=== PATIENT | male | born 1995 | race Caucasian/White ===

== ENCOUNTER 2018-06-15 15:23 | Emergency (ER) | payer OTHER ==
--- NOTE | 2018-06-15 15:42 | XR ---
EXAMINATION TYPE: XR tibia fibula RT DATE OF EXAM: 06/15/2018 COMPARISON: NONE HISTORY: 23-year-old male right lower leg pain after injury TECHNIQUE: 2 views FINDINGS: Tibia and fibula show no acute fracture. Knee and ankle articulations appear grossly intact. IMPRESSION: No acute osseous abnormality seen.
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
[2018-06-15 15:44] VITALS: RESP 18
[2018-06-15 16:45] LABS: Partial Thromboplastin Time 23.4 sec (22.0-30.0); Prothrombin Time 10.3 sec (9.0-12.0)
[2018-06-15 16:48] LABS: ALT 44 U/L (21-72); AST 25 U/L (17-59); Albumin 4.2 g/dL (3.5-5.0); Alcohol <10 mg/dL; Alkaline Phosphatase 82 U/L (38-126); Anion Gap 9 mmol/L; Blood Urea Nitrogen 20 mg/dL (9-20); Calcium 9.8 mg/dL (8.4-10.2); Carbon Dioxide 26 mmol/L (22-30); Chloride 104 mmol/L (98-107); Glucose 276 mg/dL (74-99); Potassium 4.6 mmol/L (3.5-5.1); Sodium 139 mmol/L (137-145); Total Bilirubin 0.7 mg/dL (0.2-1.3); Total Protein 7.4 g/dL (6.3-8.2)
[2018-06-15 16:52] LABS: Creatine Kinase 50 U/L (55-170)
[2018-06-15 16:54] LABS: Basophils % (A) 0 %; Eosinophils # (A) 0.1 k/uL (0-0.7); Eosinophils % (A) 1 %; HCT 44.9 % (39.0-53.0); HGB 15.3 gm/dL (13.0-17.5); Lymphocytes # (A) 1.6 k/uL (1.0-4.8); Lymphocytes % (A) 17 %; MCH 29.6 pg (25.0-35.0); MCV 87.2 fL (80.0-100.0); Mean Platelet Volume 10.2; Monocytes # (A) 0.5 k/uL (0-1.0); Monocytes % (A) 5 %; Neutrophils # (A) 7.2 k/uL (1.3-7.7); Neutrophils % (A) 76 %; Platelet Count 154 k/uL (150-450); RBC 5.15 m/uL (4.30-5.90); WBC 9.5 k/uL (3.8-10.6)
[2018-06-15 17:04] LABS: Creatine Kinase MB 0.5 ng/mL (0.0-2.4); Troponin I <0.012 ng/mL (0.000-0.034)
[2018-06-15 17:13] LABS: Amphetamine Screen,Urine Not Detected (NotDetected); Barbiturate Screen,Urine Not Detected (NotDetected); Benzodiazepines Screen,Urine Not Detected (NotDetected); Cocaine Screen,Urine Not Detected (NotDetected); Methadone Screen, Urine Not Detected (NotDetected); Opiate Screen,Urine Not Detected (NotDetected); Oxycodone Screen, Urine Not Detected (NotDetected); Phencyclidine Screen,Urine Not Detected (NotDetected); Tricyclic Antidepressant,Urine Not Detected (NotDetected); Urn Cannabinoid Scrn Not Detected (NotDetected)
[2018-06-15 17:23] VITALS: BP 134/81; PULSE 72; TEMP 98.6
== END 2018-06-15 17:23 | disposition home or self-care (01) ==
LOC: EC 15:23
DX: S80.11XA Contusion of right lower leg, initial encounter (principal); R73.9 Hyperglycemia, unspecified; F32.9 Major depressive disorder, single episode, unspecified; Z79.84 Long term (current) use of oral hypoglycemic drugs; Z79.899 Other long term (current) drug therapy; W20.8XXA Other cause of strike by thrown, projected or falling object, initial encounter; Y93.89 Activity, other specified
CPT/HCPCS: 36415; 80053; 80306; 80320; 82550; 82553; 84484; 85025; 85610; 85730; 99283

== ENCOUNTER 2018-07-10 17:48 | Inpatient (IN) | payer MEDICAID, OTHER ==
--- NOTE | 2018-07-10 19:02 | ED ---
Psych HPI - General Source: patient, RN notes reviewed, old records reviewed Mode of arrival: ambulatory <Yessy Molina - Last Filed: 07/10/18 19:44> <Jay Bishop - Last Filed: 07/11/18 14:53> - General Chief Complaint: Psychiatric Symptoms Stated Complaint: psych eval Time Seen by Provider: 07/10/18 18:00 - History of Present Illness Initial Comments: 23-year-old male presents emergency department today with complaints of depression and suicidal thoughts. Patient was encouraged to come to the emergency room was brought in via police. Patient's had no other complaints. Patient has had no plan and he will tell me of his suicidal plan. He's had no previous psych history or no counseling. (Yessy Molina) - Related Data Home Medications Medication Instructions Recorded Confirmed metFORMIN HCL [Glucophage] 500 mg PO BID 06/15/18 07/10/18 traZODone HCL 50 mg PO HS 06/15/18 07/10/18 Allergies Allergy/AdvReac Type Severity Reaction Status Date / Time No Known Allergies Allergy Verified 07/10/18 18:06 Review of Systems ROS Other: All systems not noted in ROS Statement are negative. <Yessy Molina - Last Filed: 07/10/18 19:44> ROS Other: All systems not noted in ROS Statement are negative. <Jay Bishop - Last Filed: 07/11/18 14:53> ROS Statement: Those systems with pertinent positive or pertinent negative responses have been documented in the HPI. Past Medical History Past Medical History: No Reported History History of Any Multi-Drug Resistant Organisms: None Reported Past Surgical History: No Surgical Hx Reported Past Psychological History: Depression Smoking Status: Never smoker Past Alcohol Use History: Occasional Past Drug Use History: None Reported <Yessy Molina - Last Filed: 07/10/18 19:44> General Exam Limitations: no limitations General appearance: alert, in no apparent distress Head exam: Present: atraumatic, normocephalic, normal inspection Eye exam: Present: normal appearance, PERRL, EOMI. Absent: scleral icterus, conjunctival injection, periorbital swelling ENT exam: Present: normal exam, mucous membranes moist Neck exam: Present: normal inspection. Absent: tenderness, meningismus, lymphadenopathy Respiratory exam: Present: normal lung sounds bilaterally. Absent: respiratory distress, wheezes, rales, rhonchi, stridor Cardiovascular Exam: Present: regular rate, normal rhythm, normal heart sounds. Absent: systolic murmur, diastolic murmur, rubs, gallop, clicks GI/Abdominal exam: Present: soft, normal bowel sounds. Absent: distended, tenderness, guarding, rebound, rigid Extremities exam: Present: normal inspection, full ROM, normal capillary refill. Absent: tenderness, pedal edema, joint swelling, calf tenderness Back exam: Present: normal inspection Neurological exam: Present: alert, oriented X3, CN II-XII intact Psychiatric exam: Present: normal mood, depressed, flat affect, suicidal ideation. Absent: normal affect Skin exam: Present: warm, dry, intact, normal color. Absent: rash <Yessy Molina - Last Filed: 07/10/18 19:44> <Jay Bishop - Last Filed: 07/11/18 14:53> - General Exam Comments Initial Comments: Stoic 23-year-old male. Patient pacing around room. (Yessy Molina) Vital Signs 07/10/18 07/10/18 07/11/18 17:53 23:52 06:23 Temperature 97.9 F Pulse Rate 91 Respiratory 18 18 18 Rate Blood Pressure 144/92 O2 Sat by Pulse 96 Oximetry 07/11/18 13:31 Temperature Pulse Rate 86 Respiratory 18 Rate Blood Pressure 145/82 O2 Sat by Pulse 95 Oximetry Medical Decision Making - Lab Data Result diagrams: 07/10/18 19:27 <Yessy Molina - Last Filed: 07/10/18 19:44> - Lab Data Result diagrams: 07/10/18 19:27 07/10/18 19:27 <Jay Bishop - Last Filed: 07/11/18 14:53> - Medical Decision Making 23-year-old male presents for his pharmacy with police with complaints of depression and suicidal thoughts. He will not tell me plan. Medically clear at this time for violation by EPS. Patient family friend did fill out a petition. Patient will be clinic Center by Dr. Rhea leal. As there are no psychiatric beds available Patient be transferred to inpatient psychiatric facility. (Yessy Molina) Patient also evaluated by myself, Dr. Bishop at 1445. Patient admits to being depressed and having suicidal thoughts without plan. Patient states he has been taking his medications. No hallucinations. No homicidal thoughts. Second clinical certificate is completed. Plan is for psychiatric admission. ( Jay Bishop) - Lab Data Lab Results 07/10/18 07/10/18 07/10/18 Range/Units 18:41 18:41 19:27 WBC 11.1 H (3.8-10.6) k/uL RBC 5.25 (4.30-5.90) m/uL Hgb 15.8 (13.0-17.5) gm/dL Hct 46.9 (39.0-53.0) % MCV 89.3 (80.0-100.0) fL MCH 30.1 (25.0-35.0) pg MCHC 33.7 (31.0-37.0) g/dL RDW 12.9 (11.5-15.5) % Plt Count 168 (150-450) k/uL Neutrophils % 73 % Lymphocytes % 19 % Monocytes % 5 % Eosinophils % 1 % Basophils % 0 % Neutrophils # 8.1 H (1.3-7.7) k/uL Lymphocytes # 2.1 (1.0-4.8) k/uL Monocytes # 0.6 (0-1.0) k/uL Eosinophils # 0.2 (0-0.7) k/uL Basophils # 0.0 (0-0.2) k/uL Sodium (137-145) mmol/L Potassium (3.5-5.1) mmol/L Chloride (98-107) mmol/L Carbon Dioxide (22-30) mmol/L Anion Gap mmol/L BUN (9-20) mg/dL Creatinine (0.66-1.25) mg/dL Est GFR (CKD-EPI)AfAm (>60 ml/min/1.73 sqM) Est GFR (CKD-EPI)NonAf (>60 ml/min/1.73 sqM) Glucose (74-99) mg/dL POC Glucose (mg/dL) (75-99) mg/dL POC Glu Edge Baster ID Calcium (8.4-10.2) mg/dL Total Bilirubin (0.2-1.3) mg/dL AST (17-59) U/L ALT (21-72) U/L Alkaline Phosphatase (38-126) U/L Total Protein (6.3-8.2) g/dL Albumin (3.5-5.0) g/dL Urine Color Yellow Urine Appearance Clear (Clear) Urine pH 6.0 (5.0-8.0) Ur Specific [place] 1.035 (1.001-1.035) Urine Protein 1+ H (Negative) Urine Glucose (UA) 4+ H (Negative) Urine Ketones Negative (Negative) Urine Blood Negative (Negative) Urine Nitrite Negative (Negative) Urine Bilirubin Negative (Negative) Urine Urobilinogen <2.0 (<2.0) mg/dL Ur Leukocyte Esterase Negative (Negative) Urine RBC 1 (0-5) /hpf Urine WBC 1 (0-5) /hpf Ur Squamous Epith Cells <1 (0-4) /hpf Hyaline Casts 1 (0-2) /lpf Urine Mucus Rare H (None) /hpf Urine Opiates Screen Not Detected (NotDetected) Ur Oxycodone Screen Not Detected (NotDetected) Urine Methadone Screen Not Detected (NotDetected) Ur Propoxyphene Screen Not Detected (NotDetected) Ur Barbiturates Screen Not Detected (NotDetected) U Tricyclic Antidepress Not Detected (NotDetected) Ur Phencyclidine Scrn Not Detected (NotDetected) Ur Amphetamines Screen Not Detected (NotDetected) U Methamphetamines Scrn Not Detected (NotDetected) U Benzodiazepines Scrn Not Detected (NotDetected) Urine Cocaine Screen Not Detected (NotDetected) U Marijuana (THC) Screen Not Detected (NotDetected) 07/10/18 07/11/18 Range/Units 19:27 14:39 WBC (3.8-10.6) k/uL RBC (4.30-5.90) m/uL Hgb (13.0-17.5) gm/dL Hct (39.0-53.0) % MCV (80.0-100.0) fL MCH (25.0-35.0) pg MCHC (31.0-37.0) g/dL RDW (11.5-15.5) % Plt Count (150-450) k/uL Neutrophils % % Lymphocytes % % Monocytes % % Eosinophils % % Basophils % % Neutrophils # (1.3-7.7) k/uL Lymphocytes # (1.0-4.8) k/uL Monocytes # (0-1.0) k/uL Eosinophils # (0-0.7) k/uL Basophils # (0-0.2) k/uL Sodium 140 (137-145) mmol/L Potassium 4.4 (3.5-5.1) mmol/L Chloride 107 (98-107) mmol/L Carbon Dioxide 26 (22-30) mmol/L Anion Gap 7 mmol/L BUN 19 (9-20) mg/dL Creatinine 0.60 L (0.66-1.25) mg/dL Est GFR (CKD-EPI)AfAm >90 (>60 ml/min/1.73 sqM) Est GFR (CKD-EPI)NonAf >90 (>60 ml/min/1.73 sqM) Glucose 260 H (74-99) mg/dL POC Glucose (mg/dL) 286 H (75-99) mg/dL POC Glu Edge Baster ID Nayeli Redmond Calcium 9.7 (8.4-10.2) mg/dL Total Bilirubin 0.7 (0.2-1.3) mg/dL AST 19 (17-59) U/L ALT 45 (21-72) U/L Alkaline Phosphatase 82 (38-126) U/L Total Protein 7.8 (6.3-8.2) g/dL Albumin 4.5 (3.5-5.0) g/dL Urine Color Urine Appearance (Clear) Urine pH (5.0-8.0) Ur Specific [place] (1.001-1.035) Urine Protein (Negative) Urine Glucose (UA) (Negative) Urine Ketones (Negative) Urine Blood (Negative) Urine Nitrite (Negative) Urine Bilirubin (Negative) Urine Urobilinogen (<2.0) mg/dL Ur Leukocyte Esterase (Negative) Urine RBC (0-5) /hpf Urine WBC (0-5) /hpf Ur Squamous Epith Cells (0-4) /hpf Hyaline Casts (0-2) /lpf Urine Mucus (None) /hpf Urine Opiates Screen (NotDetected) Ur Oxycodone Screen (NotDetected) Urine Methadone Screen (NotDetected) Ur Propoxyphene Screen (NotDetected) Ur Barbiturates Screen (NotDetected) U Tricyclic Antidepress (NotDetected) Ur Phencyclidine Scrn (NotDetected) Ur Amphetamines Screen (NotDetected) U Methamphetamines Scrn (NotDetected) U Benzodiazepines Scrn (NotDetected) Urine Cocaine Screen (NotDetected) U Marijuana (THC) Screen (NotDetected) Disposition Is patient prescribed a controlled substance at d/c from ED?: No Time of Disposition: 19:46 <Yessy Molina - Last Filed: 07/10/18 19:44> <Jay Bishop - Last Filed: 07/11/18 14:53> Clinical Impression: Suicidal ideation, Psychosis Disposition: TRANSFER TO PSYCH HOSP/UNIT Condition: Stable Referrals: Cyndi Au MD [Primary Care Provider] - 1-2 days
[2018-07-10 19:12] LABS: Amphetamine Screen,Urine Not Detected (NotDetected); Barbiturate Screen,Urine Not Detected (NotDetected); Benzodiazepines Screen,Urine Not Detected (NotDetected); Cocaine Screen,Urine Not Detected (NotDetected); Methadone Screen, Urine Not Detected (NotDetected); Opiate Screen,Urine Not Detected (NotDetected); Oxycodone Screen, Urine Not Detected (NotDetected); Phencyclidine Screen,Urine Not Detected (NotDetected); Tricyclic Antidepressant,Urine Not Detected (NotDetected); Urn Cannabinoid Scrn Not Detected (NotDetected)
[2018-07-10 19:39] LABS: Appearance,Urine Clear (Clear); Bilirubin,Urine Negative (Negative); Blood,Urine Negative (Negative); Color,Urine Yellow; Glucose,Urine (UA) 4+ (Negative); Hyaline Casts,Urine 1 /lpf (0-2); Ketones,Urine Negative (Negative); Leukocyte Esterase,Urine Negative (Negative); Mucus,Urine Rare /hpf; Nitrite,Urine Negative (Negative); Protein,Urine 1+ (Negative); RBC,Urine 1 /hpf (0-5); Specific Gravity,Urine 1.035 (1.001-1.035); Squamous Epithelial Cell,Urine <1 /hpf (0-4); Urobilinogen,Urine <2.0 mg/dL (<2.0); WBC,Urine 1 /hpf (0-5)
[2018-07-10 19:41] LABS: Basophils % (A) 0 %; Eosinophils # (A) 0.2 k/uL (0-0.7); Eosinophils % (A) 1 %; HCT 46.9 % (39.0-53.0); HGB 15.8 gm/dL (13.0-17.5); Lymphocytes # (A) 2.1 k/uL (1.0-4.8); Lymphocytes % (A) 19 %; MCH 30.1 pg (25.0-35.0); MCHC 33.7 g/dL (31.0-37.0); MCV 89.3 fL (80.0-100.0); Mean Platelet Volume 8.9; Monocytes # (A) 0.6 k/uL (0-1.0); Monocytes % (A) 5 %; Neutrophils # (A) 8.1 k/uL (1.3-7.7); Neutrophils % (A) 73 %; Platelet Count 168 k/uL (150-450); RBC 5.25 m/uL (4.30-5.90); RDW 12.9 % (11.5-15.5); WBC 11.1 k/uL (3.8-10.6)
[2018-07-10 19:53] LABS: ALT 45 U/L (21-72); AST 19 U/L (17-59); Albumin 4.5 g/dL (3.5-5.0); Alkaline Phosphatase 82 U/L (38-126); Anion Gap 7 mmol/L; Blood Urea Nitrogen 19 mg/dL (9-20); Calcium 9.7 mg/dL (8.4-10.2); Carbon Dioxide 26 mmol/L (22-30); Chloride 107 mmol/L (98-107); Glucose 260 mg/dL (74-99); Potassium 4.4 mmol/L (3.5-5.1); Sodium 140 mmol/L (137-145); Total Bilirubin 0.7 mg/dL (0.2-1.3); Total Protein 7.8 g/dL (6.3-8.2)
[2018-07-11 14:40] LABS: Glucose,Whole Blood 286 mg/dL (75-99)
[2018-07-11] MEDS ORDERED: metFORMIN 500 MG TAB PO STA (14:52)
[2018-07-11] MEDS ORDERED: LORazepam 1 MG TAB PO PRN (16:26)
[2018-07-11] MEDS ORDERED: MAGNESIUM HYDROXIDE 2,400 MG/10 ML CUP PO PRN (16:26)
[2018-07-11] MEDS ORDERED: ACETAMINOPHEN TAB 325 MG TAB PO PRN (16:26)
[2018-07-11] MEDS ORDERED: MAG HYDROX/AL HYDROX/SIMETH 30 ML CUP PO PRN (16:26)
[2018-07-11] MEDS ORDERED: ZIPRASIDONE 20 MG VIAL IM PRN (18:01)
[2018-07-11] MEDS: INSULIN ASPART 100 UNIT/ML 1 ML 10 ML VIAL SQ SCH ×2 (18:11→21:42)
[2018-07-11 18:14] LABS: Glucose,Whole Blood 221 mg/dL (75-99)
[2018-07-11 20:16] LABS: Glucose,Whole Blood 252 mg/dL (75-99)
[2018-07-11] MEDS: traZODone HCL 50 MG TAB PO SCH (21:43)
[2018-07-12 02:18] LABS: Hemoglobin A1C 10.1 % (4.0-6.0)
[2018-07-12 06:33] LABS: Glucose,Whole Blood 200 mg/dL (75-99)
[2018-07-12] MEDS: INSULIN ASPART 100 UNIT/ML 1 ML 10 ML VIAL SQ SCH ×4 (08:24→21:00)
--- NOTE | 2018-07-12 09:51 | P.HP ---
Psychiatric H&P - . H&P Date: 07/12/18 History & Physical: Allergies Allergy/AdvReac Type Severity Reaction Status Date / Time No Known Allergies Allergy Verified 07/10/18 18:06 Vital Signs Temp 98.3 F 07/12/18 07:01 Pulse 87 07/12/18 07:01 Resp 20 07/12/18 07:01 BP 114/67 07/12/18 07:01 Pulse Ox 98 07/11/18 17:15 Laboratory Last Values WBC 11.1 k/uL (3.8-10.6) H 07/10/18 19: RBC 5.25 m/uL (4.30-5.90) 07/10/18 19: Hgb 15.8 gm/dL (13.0-17.5) 07/10/18 19: Hct 46.9 % (39.0-53.0) 07/10/18 19: MCV 89.3 fL (80.0-100.0) 07/10/18: MCH 30.1 pg (25.0-35.0) 07/10/18 19: MCHC 33.7 g/dL (31.0-37.0) 07/10/18 19: RDW 12.9 % (11.5-15.5) 07/10/18 19: Plt Count 168 k/uL (150-450) 07/10/18 19: Neutrophils % 73 % 07/10/18 19: Lymphocytes % 19 % 07/10/18 19: Monocytes % 5 % 07/10/18: Eosinophils % 1 % 07/10/18 19: Basophils % 0 % 07/10/18 19: Neutrophils # 8.1 k/uL (1.3-7.7) H 07/10/18 19: Lymphocytes # 2.1 k/uL (1.0-4.8) 07/10/18: Monocytes # 0.6 k/uL (0-1.0) 07/10/18 19: Eosinophils # 0.2 k/uL (0-0.7) 07/10/18 19: Basophils # 0.0 k/uL (0-0.2) 07/10/18 19: Sodium 140 mmol/L (137-145) 07/10/18 19:27 Potassium 4.4 mmol/L (3.5-5.1) 07/10/18 19: Chloride 107 mmol/L (98-107) 07/10/18 19: Carbon Dioxide 26 mmol/L (22-30) 07/10/18 19: Anion Gap 7 mmol/L 07/10/18 19: BUN 19 mg/dL (9-20) 07/10/18 19: Creatinine 0.60 mg/dL (0.66-1.25) L 07/10/18 19:27 Est GFR (CKD-EPI)AfAm >90 (>60 ml/min/1.73 sqM) 07/10/18: Est GFR (CKD-EPI)NonAf >90 (>60 ml/min/1.73 sqM) 07/10/18 19: Glucose 260 mg/dL (74-99) H 07/10/18 19: POC Glucose (mg/dL) 200 mg/dL (75-99) H 07/12/18 06:31 POC Glu Vp Production PINO Halle Sargent 07/12/18 06:[address] Glu mg/dL 243 07/10/18 19: Hemoglobin A1c 10.1 % (4.0-6.0) H 07/10/18: Calcium 9.7 mg/dL (8.4-10.2) 07/10/18 19: Total Bilirubin 0.7 mg/dL (0.2-1.3) 07/10/18 19: AST 19 U/L (17-59) 07/10/18: ALT 45 U/L (21-72) 07/10/18 19: Alkaline Phosphatase 82 U/L (38-126) 07/10/18 19: Total Protein 7.8 g/dL (6.3-8.2) 07/10/18 19: Albumin 4.5 g/dL (3.5-5.0) 07/10/18 19:27 Triglycerides 142 mg/dL (<150) 07/10/18 19: Cholesterol 195 mg/dL (<200) 07/10/18 19:27 LDL Cholesterol, Calc 130 mg/dL (0-99) H 07/10/18 19:27 HDL Cholesterol 37 mg/dL (40-60) L 07/10/18 19: TSH 0.698 mIU/L (0.465-4.680) 07/10/18 19: Urine Color Yellow 07/10/18 18:41 Urine Appearance Clear (Clear) 07/10/18 18:41 Urine pH 6.0 (5.0-8.0) 07/10/18 18:41 Ur Specific Morgan 1.035 (1.001-1.035) 07/10/18 18:41 Urine Protein 1+ (Negative) H 07/10/18 18:41 Urine Glucose (UA) 4+ (Negative) H 07/10/18 18:41 Urine Ketones Negative (Negative) 07/10/18 18:41 Urine Blood Negative (Negative) 07/10/18 18:41 Urine Nitrite Negative (Negative) 07/10/18 18:41 Urine Bilirubin Negative (Negative) 07/10/18 18:41 Urine Urobilinogen <2.0 mg/dL (<2.0) 07/10/18 18:41 Ur Leukocyte Esterase Negative (Negative) 07/10/18 18:41 Urine RBC 1 /hpf (0-5) 07/10/18 18:41 Urine WBC 1 /hpf (0-5) 07/10/18 18:41 Ur Squamous Epith Cells <1 /hpf (0-4) 07/10/18 18:41 Hyaline Casts 1 /lpf (0-2) 07/10/18 18:41 Urine Mucus Rare /hpf (None) H 07/10/18 18:41 Urine Opiates Screen Not Detected (NotDetected) 07/10/18 18:41 Ur Oxycodone Screen Not Detected (NotDetected) 07/10/18 18:41 Urine Methadone Screen Not Detected (NotDetected) 07/10/18 18:41 Ur Propoxyphene Screen Not Detected (NotDetected) 07/10/18 18:41 Ur Barbiturates Screen Not Detected (NotDetected) 07/10/18 18:41 U Tricyclic Antidepress Not Detected (NotDetected) 07/10/18 18:41 Ur Phencyclidine Scrn Not Detected (NotDetected) 07/10/18 18:41 Ur Amphetamines Screen Not Detected (NotDetected) 07/10/18 18:41 U Methamphetamines Scrn Not Detected (NotDetected) 07/10/18 18:41 U Benzodiazepines Scrn Not Detected (NotDetected) 07/10/18 18:41 Urine Cocaine Screen Not Detected (NotDetected) 07/10/18 18:41 U Marijuana (THC) Screen Not Detected (NotDetected) 07/10/18 18:41 Assessment and Plan Assessment: 23-year-old male presents emergency department today with complaints of depression and suicidal thoughts. Patient was encouraged to come to the emergency room was brought in via police. Patient's had no other complaints. Patient has had no plan and he will tell me of his suicidal plan. He's had no previous psych history or no counseling. His depression is developed over the last 6 months with increased depression and cutting 06/11/2018 when he felt so overwhelmed that he started wanting to just . He is a high school graduate and has not gone to college student fact that he is and is ill as well as his sister and he does not want to leave. patient states he has just been feeling very depressed. history of depression. States he occasionally feels suicidal. patient here with police, states someone called them because they were worried about him. Pt. presented at [facility] after a family friend called 911, stating pt. had been making threatening statements about hurting other people and himself. Pt. admits to self-abuse, displaying recent scars on his forearms and legs. Pt. admits to "years of depression and lonliness with nothing to live for in life". Pt. presents as concrete with little affect based on verbal report of symptoms. Pt. reports that his mother 3 years ago, but stated, "nothing I couldn't handle". Pt. states that he "hates people and often wishes the entire World would burn up ".Evidence of self-abuse is indicative of struggles with impulse control.Pt. reports that he "does nothing with the days". Pt. further states, "I can't hold a job, I can't have a relationship, there is nothing in my life". - Related Data Home Medications Medication Instructions Recorded Confirmed metFORMIN HCL [Glucophage] 500 mg PO BID 06/15/18 07/10/18 traZODone HCL 50 mg PO HS 06/15/18 07/10/18 Allergies Allergy/AdvReac Type Severity Reaction Status Date / Time No Known Allergies Allergy Verified 07/10/18 18:06 Past Medical History Past Medical History: No Reported History History of Any Multi-Drug Resistant Organisms: None Reported Past Surgical History: No Surgical Hx Reported Past Psychological History: Depression and recent onset never treated before Smoking Status: Never smoker Past Alcohol Use History: Occasional Past Drug Use History: None Reported Social history: Lives with aunt and sister, he does not know his biological father, his grandfather had Alzheimer's disease Legal history: None Musculoskeletal Examination - Abnormal/Involuntary Movements: [none Strength: [greater than antigravity (greater than/equal to 3/5) in all extremities Muscle Tone: [no impairment Gait: [grossly normal Station: [grossly normal Mental Status Examination - General Appearance: [disheveled, casual, bizarre, appears stated age appears younger than stated age Speech/Language: [ slow monotone, soft] Attitude/Behavior: [cooperative irritable, withdrawn, indifferent Mood: [depressed; 7 out of 10, anxious 6 out of 10, irritablefearful, hopelessness Affect: [flat, labile, blunted constricted] Orientation: [time, person, place situation] Thought Content: [wnl, denies delusions, obsessions, phobias, other] Risk Factors: [He currently is suicidal (ideations, plan), and/or Homicidal ( ideations, plan), other] Perception: [wnl, denies hallucinations (auditory, visual, tactile), other] Thought Processes: [concrete, circumstantial, tangential, other] Concentration/Attention Span: [ impaired] [Per observation and interview with the patient] Recent Memory: [wnl Remote Memory: [wnl,] [past events, as related history] Intelligence: [ average] [based on history, based on vocabulary, syntax, grammar , and content] Judgement: [ poor] [per patient's behavior/history of present illness] Insight: [poor] [understanding severity of illness/history of present illness] Admitting Diagnosis: [Major 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] Patient Strengths - Steady employment/financial stability: [] Housing stability: [x] Able to vocalize needs: [x]Values and traditions: [x] Motivation, determination, readiness for change: [x] Setting and pursuing goals, hopes, dreams, aspirations: [x] Resources - social, interpersonal, monetary: [x] Interpersonal relationships and supports available - family, relatives, friends : [x] Patient Limitations: [medication, non-compliance, pathological/unsupported environment, no interests, intellectual impairment, complicated medical illness , legal issues, lack of social supports, other] Initial Plan of Care: [This an involuntary patient and the [facility]. behavior health unit will be placed on 15 minute checks and usual protocol the unit. He will be evaluated by medicine for his diabetes, psychiatry due to suicidal ideation, nursing staff, social work and occupational therapy. He'll be encouraged to go to groups and be adherent to med psych medication regime as well as go to groups and interactive in the [facility] therapeutic environment. This is a shy 23-year-old single male who states he has difficulty being around a group of people. His goal is to feel better about himself and to be less depressed. He'll be started on a Effexor 37.5 mg XR and titrated to 300 mg XL and add Lamictal and titrated from 25 mg to 200 mg by mouth daily at bedtime. Laboratory tests are being further evaluated for his diabetes and his hemoglobin A1c.x] Estimated Length of Stay: [7 days] Initial Discharge Plan: [home, [facility], referred to therapist Prognosis: [ guarded] Justification for Inpatient Hospitalization - [ anxiety, depression resulting in significant loss of functioning.] [Dangerous to self, others, or property with need for controlled environment.] [Emotional or behavioral conditions and complications requiring 24 hour medical and nursing care.] [Need for special drug therapy, or other therapeutic program requiring continuous hospitalization.] [Failure of social or occupational functioning.] [Inability to meet basic life and health needs.] (1) Major depressive disorder, single episode with melancholic features Current Visit: Yes Status: Acute Priority: High Code(s): F32.9 - MAJOR DEPRESSIVE DISORDER, SINGLE EPISODE, UNSPECIFIED SNOMED Code(s): 86465723 (2) Suicidal ideation Current Visit: Yes Status: Acute Priority: High Code(s): R45.851 - SUICIDAL IDEATIONS SNOMED Code(s): 6710687 Time with Patient: Greater than 30
--- NOTE | 2018-07-12 12:37 | P.CONS ---
Review of Systems CONSTITUTIONAL: No fever, no malaise, no fatigue. HEENT: No recent visual problems or hearing problems. Denied any sore throat. CARDIOVASCULAR: No orthopnea, PND, no palpitations, no syncope. PULMONARY: No shortness of breath, no cough, no hemoptysis. GASTROINTESTINAL: No diarrhea, no nausea, no vomiting, no abdominal pain. Normoactive bowel sounds. NEUROLOGICAL: No headaches, no weakness, no numbness. HEMATOLOGICAL: Denies any bleeding or petechiae. GENITOURINARY: Denies any burning micturition, frequency, or urgency. MUSCULOSKELETAL/RHEUMATOLOGICAL: Denies any joint pain, swelling, or any muscle pain. ENDOCRINE: Denies any polyuria or polydipsia. Past Medical History Past Medical History: No Reported History History of Any Multi-Drug Resistant Organisms: None Reported Past Surgical History: No Surgical Hx Reported Smoking Status: Never smoker Medications and Allergies Home Medications Medication Instructions Recorded Confirmed Type metFORMIN HCL [Glucophage] 500 mg PO BID 06/15/18 07/10/18 History traZODone HCL 50 mg PO HS 06/15/18 07/10/18 History Allergies Allergy/AdvReac Type Severity Reaction Status Date / Time No Known Allergies Allergy Verified 07/10/18 18:06 Physical Exam Vitals: Vital Signs Temp Pulse Pulse Resp BP BP Pulse Ox 07/12/18 07:01 98.3 F 87 20 114/67 07/11/18 17:15 97.9 F 86 16 145/82 98 07/11/18 16:23 84 16 135/83 98 07/11/18 13:31 86 18 145/82 95 GENERAL: The patient is alert and oriented x3, not in any acute distress. Well developed, well nourished. HEENT: Pupils are round and equally reacting to light. EOMI. No scleral icterus. No conjunctival pallor. Normocephalic, atraumatic. No pharyngeal erythema. No thyromegaly. CARDIOVASCULAR: S1 and S2 present. No murmurs, rubs, or gallops. PULMONARY: Chest is clear to auscultation, no wheezing or crackles. ABDOMEN: Soft, nontender, nondistended, normoactive bowel sounds. No palpable organomegaly. MUSCULOSKELETAL: No joint swelling or deformity. EXTREMITIES: No cyanosis, clubbing, or pedal edema. NEUROLOGICAL: Gross neurological examination did not reveal any focal deficits. SKIN: No rashes. Results CBC & Chem 7: 07/10/18 19:27 07/10/18 19:27 Labs: Abnormal Lab Results - Last 24 Hours (Table) 07/10/18 07/10/18 07/11/18 Range/Units 19:27 19:27 14:39 POC Glucose (mg/dL) 286 H (75-99) mg/dL Hemoglobin A1c 10.1 H (4.0-6.0) % LDL Cholesterol, Calc 130 H (0-99) mg/dL HDL Cholesterol 37 L (40-60) mg/dL 07/11/18 07/11/18 07/12/18 Range/Units 18:08 20:11 06:31 POC Glucose (mg/dL) 221 H 252 H 200 H (75-99) mg/dL Hemoglobin A1c (4.0-6.0) % LDL Cholesterol, Calc (0-99) mg/dL HDL Cholesterol (40-60) mg/dL Assessment and Plan Assessment: Diabetes mellitus, type II area to continue with metformin Leukocytosis, mostly reactive. Keep monitoring Major depression with suicidal ideation. Management as per primary psych team. Plan: This is a pleasant 23 years old male who presents to the psychiatric unit for signs symptoms of depression. Continue with medical management including metformin and keep monitoring his sugar. Labs and medication were reviewed.. Continue same treatment. Continue with symptomatic treatment. Resume home medication. Monitor lytes and vitals. DVT and GI prophylaxis. Further recommendations of the clinical course of the patient DVT prophylaxis: Patient is mobile, with low risk for DVT. No need for heparin. GI Prophylaxis: Not needed PT/OT: Not needed Thank you for consulting us, please feel free to contact us for any further question or clarification
[2018-07-12 12:48] LABS: Glucose,Whole Blood 209 mg/dL (75-99)
[2018-07-12 14:26] LABS: Basophils % (A) 0 %; Eosinophils # (A) 0.1 k/uL (0-0.7); Eosinophils % (A) 1 %; HCT 44.1 % (39.0-53.0); HGB 15.3 gm/dL (13.0-17.5); Lymphocytes # (A) 1.8 k/uL (1.0-4.8); Lymphocytes % (A) 20 %; MCH 30.7 pg (25.0-35.0); MCHC 34.7 g/dL (31.0-37.0); MCV 88.4 fL (80.0-100.0); Mean Platelet Volume 9.9; Monocytes # (A) 0.5 k/uL (0-1.0); Monocytes % (A) 5 %; Neutrophils # (A) 6.6 k/uL (1.3-7.7); Neutrophils % (A) 72 %; Platelet Count 195 k/uL (150-450); RBC 4.99 m/uL (4.30-5.90); RDW 12.9 % (11.5-15.5); WBC 9.2 k/uL (3.8-10.6)
[2018-07-12] MEDS ORDERED: chlorproMAZINE 25 MG/ML 2 ML AMP IM PRN (14:35)
[2018-07-12] MEDS ORDERED: diphenhydrAMINE 50 MG/ML 1 ML VIAL IM PRN (14:36)
[2018-07-12 17:41] LABS: Glucose,Whole Blood 219 mg/dL (75-99)
[2018-07-12 19:58] LABS: Glucose,Whole Blood 186 mg/dL (75-99)
[2018-07-12] MEDS ORDERED: lamoTRIgine 25 MG TAB PO SCH (21:00)
[2018-07-12] MEDS ORDERED: VENLAFAXINE HCL ER 37.5 MG CAP PO SCH (21:00)
[2018-07-12] MEDS: traZODone HCL 50 MG TAB PO SCH (21:01)
[2018-07-13 06:40] LABS: Glucose,Whole Blood 199 mg/dL (75-99)
[2018-07-13] MEDS: metFORMIN 500 MG TAB PO SCH ×2 (07:54→18:00)
[2018-07-13] MEDS: INSULIN ASPART 100 UNIT/ML 1 ML 10 ML VIAL SQ SCH ×4 (07:55→20:33)
[2018-07-13 11:28] VITALS: BMI 37.0
[2018-07-13 12:22] LABS: Glucose,Whole Blood 220 mg/dL (75-99)
--- NOTE | 2018-07-13 13:25 | P.PN ---
Subjective Progress Note Date: 07/13/18 Principal diagnosis: Major depressive disorder Discussed in detail treatment including deferral probate court hearing and that he would have to continue treatment and outpatient basis. He realizes he has depression and is not able to cut once arm. He appears with a very flat scared affect all answering questions. He was found in the hallway and was able to walk to my office without difficulty. Chart was reviewed this morning and discussed at team. The team believed that he is a flight risk and discuss this with him today which he said he would stay for treatment. Objective - Vital Signs Vital signs: Vital Signs Temp 98.4 F 07/13/18 06:35 Pulse 72 07/13/18 06:35 Resp 16 07/13/18 06:35 BP 117/77 07/13/18 06:35 Pulse Ox 98 07/11/18 17:15 Intake & Output 07/12/18 07/13/18 07/13/18 18:59 06:59 18:59 Weight 131.088 kg - Labs CBC & Chem 7: 07/12/18 13:27 07/10/18 19:27 Labs: Abnormal Lab Results - Last 24 Hours (Table) 07/12/18 07/12/18 07/13/18 Range/Units 17:33 19:56 06:32 POC Glucose (mg/dL) 219 H 186 H 199 H (75-99) mg/dL 07/13/18 Range/Units 12:04 POC Glucose (mg/dL) 220 H (75-99) mg/dL Assessment and Plan Assessment: 23-year-old male presents emergency department today with complaints of depression and suicidal thoughts. Patient was encouraged to come to the emergency room was brought in via police. Patient's had no other complaints. Patient has had no plan and he will tell me of his suicidal plan. He's had no previous psych history or no counseling. His depression is developed over the last 6 months with increased depression and cutting 06/11/2018 when he felt so overwhelmed that he started wanting to just . He is a high school graduate and has not gone to college student fact that he is and is ill as well as his sister and he does not want to leave. patient states he has just been feeling very depressed. history of depression. States he occasionally feels suicidal. patient here with police, states someone called them because they were worried about him. Pt. presented at [facility] after a family friend called 911, stating pt. had been making threatening statements about hurting other people and himself. Pt. admits to self-abuse, displaying recent scars on his forearms and legs. Pt. admits to "years of depression and lonliness with nothing to live for in life". Pt. presents as concrete with little affect based on verbal report of symptoms. Pt. reports that his mother 3 years ago, but stated, "nothing I couldn't handle". Pt. states that he "hates people and often wishes the entire World would burn up ".Evidence of self-abuse is indicative of struggles with impulse control.Pt. reports that he "does nothing with the days". Pt. further states, "I can't hold a job, I can't have a relationship, there is nothing in my life". - Mental Status Examination - General Appearance: [disheveled, casual, bizarre, appears stated age appears younger than stated age Speech/Language: [ slow monotone, soft] Attitude/Behavior: [cooperative irritable, withdrawn, indifferent Mood: [depressed; 7 out of 10, anxious 6 out of 10, irritablefearful, hopelessness Affect: [flat, labile, blunted constricted] Orientation: [time, person, place situation] Thought Content: [wnl, denies delusions, obsessions, phobias, other] Risk Factors: [He currently is suicidal (ideations, plan), and/or Homicidal ( ideations, plan), other] Perception: [wnl, denies hallucinations (auditory, visual, tactile), other] Thought Processes: [concrete, circumstantial, tangential, other] Concentration/Attention Span: [ impaired] [Per observation and interview with the patient] Recent Memory: [wnl Remote Memory: [wnl,] [past events, as related history] Intelligence: [ average] [based on history, based on vocabulary, syntax, grammar , and content] Judgement: [ poor] [per patient's behavior/history of present illness] Insight: [poor] [understanding severity of illness/history of present illness] Admitting Diagnosis: [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 behavior health unit will be placed on 15 minute checks and usual protocol the unit. He will be evaluated by medicine for his diabetes, psychiatry due to suicidal ideation, nursing staff, social work and occupational therapy. He'll be encouraged to go to groups and be adherent to med psych medication regime as well as go to groups and interactive in the [facility] therapeutic environment. This is a shy 23-year-old single male who states he has difficulty being around a group of people. His goal is to feel better about himself and to be less depressed. He'll be started on a Effexor 75 mg mg XR (07/13/2018 and titrated to 300 mg XL and add Lamictal 50 mg (07/13/2018). and titrated from 25 mg to 200 mg by mouth daily at bedtime. Laboratory tests are being further evaluated for his diabetes and his hemoglobin A1c.x] Estimated Length of Stay: [5 days] Initial Discharge Plan: [home, [facility], referred to therapist Prognosis: [ guarded] (1) Major depressive disorder, single episode with melancholic features Current Visit: Yes Status: Acute Priority: High Code(s): F32.9 - MAJOR DEPRESSIVE DISORDER, SINGLE EPISODE, UNSPECIFIED SNOMED Code(s): 58196879 (2) Suicidal ideation Current Visit: Yes Status: Acute Priority: High Code(s): R45.851 - SUICIDAL IDEATIONS SNOMED Code(s): 1475972 Time with Patient: Less than 30
[2018-07-13] MEDS ORDERED: diphenhydrAMINE 25 MG CAP PO PRN (13:35)
[2018-07-13 17:36] LABS: Glucose,Whole Blood 215 mg/dL (75-99)
[2018-07-13 20:11] LABS: Glucose,Whole Blood 280 mg/dL (75-99)
[2018-07-13] MEDS: traZODone HCL 50 MG TAB PO SCH (20:35)
[2018-07-13] MEDS ORDERED: VENLAFAXINE HCL ER 75 MG CAP PO SCH (21:00)
[2018-07-13] MEDS ORDERED: lamoTRIgine 25 MG TAB PO SCH (21:00)
[2018-07-14 06:44] LABS: Glucose,Whole Blood 196 mg/dL (75-99)
[2018-07-14] MEDS: INSULIN ASPART 100 UNIT/ML 1 ML 10 ML VIAL SQ SCH ×4 (08:08→21:26)
[2018-07-14] MEDS: metFORMIN 500 MG TAB PO SCH ×2 (08:08→17:47)
--- NOTE | 2018-07-14 11:40 | P.PN ---
Subjective Progress Note Date: 07/14/18 Principal diagnosis: Major depressive disorder Discussed in detail treatment including deferral probate court hearing and that he would have to continue treatment and outpatient basis. He realizes he has depression and is not able to cut once arm. He appears with a very flat scared affect all answering questions. He was found in the hallway and was able to walk to my office without difficulty. Chart was reviewed this morning and discussed at team. The team believed that he is a flight risk and discuss this with him today which he said he would stay for treatment. Chart reviewed and patient interviewed teamed morning meeting: Patient states that he feels better less depressed slept last night and has no delusions and no racing thoughts he denies suicidal or homicidal ideation Objective - Vital Signs Vital signs: Vital Signs Temp 98.4 F 07/14/18 06:48 Pulse 75 07/14/18 06:48 Resp 16 07/14/18 06:48 BP 118/61 07/14/18 06:48 Pulse Ox 98 07/11/18 17:15 Intake & Output 07/13/18 07/14/18 07/14/18 18:59 06:59 18:59 Weight 131.088 kg - Labs CBC & Chem 7: 07/12/18 13:27 07/10/18 19:27 Labs: Abnormal Lab Results - Last 24 Hours (Table) 07/13/18 07/13/18 07/13/18 Range/Units 12:04 17:33 20:09 POC Glucose (mg/dL) 220 H 215 H 280 H (75-99) mg/dL 07/14/18 Range/Units 06:11 POC Glucose (mg/dL) 196 H (75-99) mg/dL Assessment and Plan Assessment: 23-year-old male presents emergency department today with complaints of depression and suicidal thoughts. Patient was encouraged to come to the emergency room was brought in via police. Patient's had no other complaints. Patient has had no plan and he will tell me of his suicidal plan. He's had no previous psych history or no counseling. His depression is developed over the last 6 months with increased depression and cutting 06/11/2018 when he felt so overwhelmed that he started wanting to just . He is a high school graduate and has not gone to college student fact that he is and is ill as well as his sister and he does not want to leave. patient states he has just been feeling very depressed. history of depression. States he occasionally feels suicidal. patient here with police, states someone called them because they were worried about him. Pt. presented at [facility] after a family friend called 911, stating pt. had been making threatening statements about hurting other people and himself. Pt. admits to self-abuse, displaying recent scars on his forearms and legs. Pt. admits to "years of depression and lonliness with nothing to live for in life". Pt. presents as concrete with little affect based on verbal report of symptoms. Pt. reports that his mother 3 years ago, but stated, "nothing I couldn't handle". Pt. states that he "hates people and often wishes the entire World would burn up ".Evidence of self-abuse is indicative of struggles with impulse control.Pt. reports that he "does nothing with the days". Pt. further states, "I can't hold a job, I can't have a relationship, there is nothing in my life". - Mental Status Examination - General Appearance: [disheveled, casual, bizarre, appears stated age appears younger than stated age Speech/Language: [ slow monotone, soft] Attitude/Behavior: [cooperative irritable, withdrawn, indifferent Mood: [depressed; 7 out of 10, anxious 6 out of 10, irritablefearful, hopelessness Affect: [flat, labile, blunted constricted] Orientation: [time, person, place situation] Thought Content: [wnl, denies delusions, obsessions, phobias, other] Risk Factors: [He currently is suicidal (ideations, plan), and/or Homicidal ( ideations, plan), other] Perception: [wnl, denies hallucinations (auditory, visual, tactile), other] Thought Processes: [concrete, circumstantial, tangential, other] Concentration/Attention Span: [ impaired] [Per observation and interview with the patient] Recent Memory: [wnl Remote Memory: [wnl,] [past events, as related history] Intelligence: [ average] [based on history, based on vocabulary, syntax, grammar , and content] Judgement: [ poor] [per patient's behavior/history of present illness] Insight: [poor] [understanding severity of illness/history of present illness] Admitting Diagnosis: [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 unit will be placed on 15 minute checks and usual protocol the unit. He will be evaluated by medicine for his diabetes, psychiatry due to suicidal ideation, nursing staff, social work and occupational therapy. He'll be encouraged to go to groups and be adherent to med psych medication regime as well as go to groups and interactive in the [facility] therapeutic environment. This is a shy 23-year-old single male who states he has difficulty being around a group of people. His goal is to feel better about himself and to be less depressed. He'll be started on a Effexor 150 mg mg XR (07/14/2018 and titrated to 300 mg XL and add Lamictal 100 mg (07/14/2018). and titrated from 25 mg to 200 mg by mouth daily at bedtime. Laboratory tests are being further evaluated for his diabetes and his hemoglobin A1c. Was 10.1 and therefore has diabetes as well] Estimated Length of Stay: [5 days] Initial Discharge Plan: [home, [facility], referred to therapist Prognosis: [ guarded] (1) Major depressive disorder, single episode with melancholic features Current Visit: Yes Status: Acute Priority: High Code(s): F32.9 - MAJOR DEPRESSIVE DISORDER, SINGLE EPISODE, UNSPECIFIED SNOMED Code(s): 51347586 (2) Suicidal ideation Current Visit: Yes Status: Acute Priority: High Code(s): R45.851 - SUICIDAL IDEATIONS SNOMED Code(s): 6404055 Time with Patient: Less than 30
[2018-07-14 12:41] LABS: Glucose,Whole Blood 158 mg/dL (75-99)
[2018-07-14 17:40] LABS: Glucose,Whole Blood 180 mg/dL (75-99)
[2018-07-14 20:43] LABS: Glucose,Whole Blood 193 mg/dL (75-99)
[2018-07-14] MEDS ORDERED: lamoTRIgine 100 MG TAB PO SCH (21:00)
[2018-07-14] MEDS ORDERED: VENLAFAXINE HCL ER 150 MG CAP PO SCH (21:00)
[2018-07-14] MEDS: traZODone HCL 50 MG TAB PO SCH (21:36)
[2018-07-15 06:06] LABS: Glucose,Whole Blood 159 mg/dL (75-99)
[2018-07-15 07:05] VITALS: BP 119/71; PULSE 76; RESP 18; TEMP 98.1
[2018-07-15] MEDS: INSULIN ASPART 100 UNIT/ML 1 ML 10 ML VIAL SQ SCH ×2 (07:35→13:00)
[2018-07-15] MEDS: metFORMIN 500 MG TAB PO SCH (08:02)
--- NOTE | 2018-07-15 11:03 | P.DS ---
Providers Date of admission: 07/11/18 15:30 Expected date of discharge: 07/15/18 Attending physician: Mohsen Henry, Consults: 07/11/18 16:26 Consult Physician Routine Consulting Provider: Ana Branham Consult Reason/Comments: H & P medical managment Do you want consulting provider notified?: Already Contacted Primary care physician: Cyndi Au - Discharge Diagnosis(es) (1) Major depressive disorder, single episode with melancholic features 23-year-old male presents emergency department today with complaints of depression and suicidal thoughts. Patient was encouraged to come to the emergency room was brought in via police. Patient's had no other complaints. Patient has had no plan and he will tell me of his suicidal plan. He's had no previous psych history or no counseling. His depression is developed over the last 6 months with increased depression and cutting 06/11/2018 when he felt so overwhelmed that he started wanting to just . He is a high school graduate and has not gone to college student fact that he is and is ill as well as his sister and he does not want to leave. patient states he has just been feeling very depressed. history of depression. States he occasionally feels suicidal. patient here with police, states someone called them because they were worried about him. Pt. presented at [facility] after a family friend called 911, stating pt. had been making threatening statements about hurting other people and himself. Pt. admits to self-abuse, displaying recent scars on his forearms and legs. Pt. admits to "years of depression and lonliness with nothing to live for in life". Pt. presents as concrete with little affect based on verbal report of symptoms. Pt. reports that his mother 3 years ago, but stated, "nothing I couldn't handle". Pt. states that he "hates people and often wishes the entire World would burn up ".Evidence of self-abuse is indicative of struggles with impulse control.Pt. reports that he "does nothing with the days". Pt. further states, "I can't hold a job, I can't have a relationship, there is nothing in my life". - Related Data Home Medications Medication Instructions Recorded Confirmed metFORMIN HCL [Glucophage] 500 mg PO BID 06/15/18 07/10/18 traZODone HCL 50 mg PO HS 06/15/18 07/10/18 Allergies Allergy/AdvReac Type Severity Reaction Status Date / Time No Known Allergies Allergy Verified 07/10/18 18:06 Past Medical History Past Medical History: No Reported History History of Any Multi-Drug Resistant Organisms: None Reported Past Surgical History: No Surgical Hx Reported Past Psychological History: Depression and recent onset never treated before Smoking Status: Never smoker Past Alcohol Use History: Occasional Past Drug Use History: None Reported Social history: Lives with aunt and sister, he does not know his biological father, his grandfather had Alzheimer's disease Legal history: None Current Visit: Yes Status: Acute Priority: High (2) Suicidal ideation Current Visit: Yes Status: Acute Priority: High Hospital Course: Plan of Care: [This an involuntary patient and the [facility]. behavior health unit will be placed on 15 minute checks and usual protocol the unit. He will be evaluated by medicine for his diabetes, psychiatry due to suicidal ideation, nursing staff, social work and occupational therapy. He'll be encouraged to go to groups and be adherent to med psych medication regime as well as go to groups and interactive in the [facility] therapeutic environment. This is a shy 23-year-old single male who states he has difficulty being around a group of people. His goal is to feel better about himself and to be less depressed. He'll be started on a Effexor 150 mg mg XR (07/14/2018 and titrated to 300 mg XL and add Lamictal 100 mg (07/14/2018). and titrated from 25 mg to 200 mg by mouth daily at bedtime. Laboratory tests are being further evaluated for his diabetes and his hemoglobin A1c. Was 10.1 and therefore has diabetes as well] Mental status examination at the time of discharge: The patient presents alert, pleasant, and cooperative. There calmly seated without any agitated behavior. [He] reports that [his] mood is good. Affect is congruent and euthymic. [He] deny having any suicidal or homicidal ideation intent or plan. [He] denies any auditory or visual hallucinations. There is no evidence of any delusional thought content. [His] thought process is linear and goal-directed. [His] speech is fluent and nonpressured. [His] memory and concentration is grossly intact for the purposes of this session. Patient Condition at Discharge: Stable Plan - Discharge Summary New Discharge Prescriptions: New Insulin Aspart [NovoLOG (formulary)] 0 unit SQ ACHS vial lamoTRIgine [LaMICtal] 100 mg PO 2099 30 Days #30 tab traZODone HCL [Desyrel] 50 mg PO HS #0 tab Venlafaxine HCl ER [Effexor XR] 150 mg PO 2099 30 Days #30 cap.er.24h Continue metFORMIN HCL [Glucophage] 500 mg PO BID Discontinued traZODone HCL 50 mg PO HS Discharge Medication List metFORMIN HCL [Glucophage] 500 mg PO BID 06/15/18 [History] Insulin Aspart [NovoLOG (formulary)] 0 unit SQ ACHS vial 07/15/18 [Rx] Venlafaxine HCl ER [Effexor XR] 150 mg PO 2099 30 Days #30 cap.er.24h 07/15/18 [ Rx] lamoTRIgine [LaMICtal] 100 mg PO 2100 30 Days #30 tab 07/15/18 [Rx] traZODone HCL [Desyrel] 50 mg PO HS #0 tab 07/15/18 [Rx] Follow up Appointment(s)/Referral(s): Cyndi Au MD [Primary Care Provider] - 1-2 days Discharge Disposition: HOME SELF-CARE
[2018-07-15 12:59] LABS: Glucose,Whole Blood 156 mg/dL (75-99)
== END 2018-07-15 14:32 | disposition home or self-care (01) | DRG 881 ==
LOC: EC 17:48 → 3MHU 07-11 15:30
PROVIDERS: ADMIT Psychiatry & Neurology Psychiatry; ATTEND Psychiatry & Neurology Psychiatry
DX: F32.9 Major depressive disorder, single episode, unspecified (principal); R45.851 Suicidal ideations; D72.829 Elevated white blood cell count, unspecified; E11.9 Type 2 diabetes mellitus without complications; Z79.84 Long term (current) use of oral hypoglycemic drugs; Z91.19 Patient's noncompliance with other medical treatment and regimen
CPT/HCPCS: 36415; 80053; 80061; 80306; 81001; 82075; 83036; 84443; 85025; 99285